=== PATIENT | female | born 1945 | race Caucasian/White ===

== ENCOUNTER → 2021-03-09 | Outpatient (CLI) | payer OTHER, MEDICAID ==
[2015-11-18 10:40] VITALS: BP 129/78
[~2021-03-09] MED LIST: ACETAMINOPHEN; AMOX1TAB11; ANTI; ASCO500T3 PO; ASPI-424; ATOR10TA60; BACL10TA; BISA10SU4 RC; BUSP10TA; CALC-157 PO; CELE200C PO; CETI10TA16 PO; CETIRIZINE; CRAN500C5 PO; CULTURELLE CAP1 EACH PO; CYAN25002 SL; DICL100G54; DOCU-109 PO; DULO30CA44; DULO60CA45; EFFER-K 10 MEQ10 MEQ; FERR325T14 PO; FIBER; FLAX10003 PO; FLUC150T2; FLUT16SP; FURO40TA4; GABA600T7; GADOTERATE 5 MMOL/10ML VIAL. IVP ONE; HERB1CAP PO; HYDR-2761; HYDR200T5; HYOS0.1222 PO; KETO120S4; LEVO300T4; LEVO50TA5; LEVO750T5; LUBRICANT; NIAC250T7 PO; NITR100C6; NITR50CA; NITR50CA PO; OMEP-203 PO; OMEP20CA16; OXYB15TA18; OYSTER; SENN-182 PO; SODI1000; SPIR100T4; SPIR100T4 PO; SULF500T7; VITAMIN; ZINC220C7 PO; [UNRECOGNIZED DRUG - CODE]; [UNRECOGNIZED DRUG - OTHER]
--- NOTE | 2021-03-09 15:08 | RAD ---
Examination: MRI of the left foot without and with IV contrast HISTORY: History of left lateral foot COMPARISON: None available TECHNIQUE: Multiplanar multisequence MR imaging of the left foot was performed without and with IV co ntrast. IV contrast is a 20 mL of clariscan FINDINGS: The alignment of the tarsal bones, tarsometatarsal grossly appears unremarkable. There is l ow T1 signal identified in the distal aspect of the fifth metatarsal and proximal portion of the prox imal phalanx of the fifth toe with corresponding high T2 signal and enhancement likely osteomyelitis. Increased T2 signal with enhancement identified in the soft tissue about the fifth toe and fifth met atarsal likely soft tissue infection. Soft tissue wound identified about the fifth metatarsal head. M oderate increased T2 signal identified in the dorsal portion of the distal forefoot likely edema. IMPRESSION: 1. Findings consistent with osteomyelitis of the distal aspect of the fifth metatarsal and the proxi mal portion of the proximal phalanx of the fifth toe. 2. Increased T2 signal with enhancement identified in the soft tissue about the fifth toe and fifth metatarsal likely soft tissue infection. Soft tissue wound identified about the fifth metatarsal head . 3. Moderate increased T2 signal identified in the dorsal portion of the distal forefoot likely edema . Electronically signed by: Enrrique Chapman MD (03/09/2021 3:06 PM) [id number]
== END ==
LOC: MRI 11:03
PROVIDERS: ATTEND Nurse Practitioner Family
DX: S91.302A Unspecified open wound, left foot, initial encounter (principal); X58.XXXA Exposure to other specified factors, initial encounter; Y93.89 Activity, other specified; Y92.89 Other specified places as the place of occurrence of the external cause; Y99.8 Other external cause status
CPT/HCPCS: 73720; A9575